=== PATIENT | female | born 1940 | race Caucasian/White ===

== ENCOUNTER 2019-09-25 16:34 | Emergency (ER) | payer OTHER ==
[2019-09-25] MEDS ORDERED: IPRATROPIUM BROM 0.5MG/2.5ML ONE (16:39)
[2019-09-25] MEDS ORDERED: ALBUTEROL 2.5 MG/3 ML NEB SOL ONE (16:39)
[2019-09-25 17:22] LABS: Absolute Lymphocytes (CBC) 2.4 K/uL (0.7-4.9); Basophils % 1.2 % (0-1.3); Hematocrit 40.1 % (36.0-45.0); Lymphocytes % 32.3 % (15.3-44.8); MPV 8.5 fL (7.6-11.3); RBC Red Blood Cell Count 4.14 M/uL (3.86-4.86)
[2019-09-25] MEDS ORDERED: HYDROCODONE/APAP 7.5/325 MG TAB ONE (17:30)
[2019-09-25 17:31] LABS: Protime INR 0.97
[2019-09-25] MEDS ORDERED: NA CHLORIDE 0.9% 500 ML ONE (17:31)
[2019-09-25 17:42] LABS: ALT/SGPT 22 U/L (12-78); AST/SGOT 18 U/L (15-37); Albumin 3.1 g/dL (3.4-5.0); Alkaline Phosphatase 117 U/L (45-117); BUN Blood Urea Nitrogen 23 mg/dL (7-18); Bicarbonate 33 mmol/L (21-32); Bilirubin Direct < 0.1 mg/dL (0-0.2); Bilirubin Total 0.2 mg/dL (0.2-1.0); Glucose Level 108 mg/dL (74-106); Magnesium 2.3 mg/dL (1.8-2.4); NT PRO-BNP 370 pg/mL (<450); Potassium 3.6 mmol/L (3.5-5.1); Sodium Level 144 mmol/L (136-145); Troponin (Emerg Dept Use Only) < 0.02 ng/mL (0.0-0.045)
[2019-09-25] MEDS ORDERED: predniSONE 20 MG TAB ONE (17:55)
--- NOTE | 2019-09-25 18:12 | ER ---
Nurse's Notes [facility] Name: Emilee Evans Age: 79 yrs Sex: Female : 1940 Arrival Date: 09/25/2019 Time: 16:32 Bed 3 Private MD: Diagnosis: Chronic obstructive pulmonary disease with (acute) exacerbation Presentation: 09/25 16:29 Presenting complaint: EMS states: chest pain that started after sitting outside of [facility] sv smoking a cigarette. Normal EKG. Transition of care: patient was not received from another setting of care. Onset of symptoms was September 25, 2019. Risk Assessment: Do you want to hurt yourself or someone else? Patient reports no desire to harm self or others. Care prior to arrival: Medication(s) given: ASA, 81 mg, x 4, IV initiated. in the right antecubital area, Glucose check: 110. 16:29 Method Of Arrival: EMS: [facility] sv 16:30 Initial Sepsis Screen: Does the patient meet any 2 criteria? RR > 20 per min. HR > 90 sv bpm. Yes Does the patient have a suspected source of infection? No. Patient's initial sepsis screen is negative. 16:33 Acuity: RITU 2 sv Triage Assessment: 16:30 General: Appears in no apparent distress. uncomfortable, well developed, Behavior is sv cooperative, appropriate for age. Pain: Complains of pain in back of neck. Neuro: Level of Consciousness is awake, alert, obeys commands, Oriented to person, place, time, situation, Moves all extremities. Cardiovascular: Rhythm is sinus tachycardia. Respiratory: Respiratory effort is even, unlabored, Respiratory pattern is symmetrical, tachypnea Breath sounds with wheezes bilaterally. Derm: Skin is normal. Historical: - Allergies: 17:06 No Known Allergies; sv - PMHx: 17:06 CVA; Hypothyroidism; COPD; sv - Immunization history:: Adult Immunizations up to date. - Social history:: Smoking status: Patient uses tobacco products. - Ebola Screening: : No symptoms or risks identified at this time. Screenin:29 Abuse screen: Denies threats or abuse. Denies injuries from another. Nutritional sv screening: No deficits noted. Tuberculosis screening: No symptoms or risk factors identified. Fall Risk None identified. Assessment: 17:29 Reassessment: Patient appears in no apparent distress at this time. Patient and/or sv family updated on plan of care and expected duration. Pain level reassessed. Patient is alert, oriented x 3, equal unlabored respirations, skin warm/dry/pink. 18:15 Reassessment: Patient appears in no apparent distress at this time. Patient and/or sv family updated on plan of care and expected duration. Pain level reassessed. Patient is alert, oriented x 3, equal unlabored respirations, skin warm/dry/pink. Pt requesting food, ok by Zahraa CORPORATE INTERN. Pt given sandwich, baked chips and apple juice. 18:40 Reassessment: Patient appears in no apparent distress at this time. Patient and/or sv family updated on plan of care and expected duration. Pain level reassessed. Patient is alert, oriented x 3, equal unlabored respirations, skin warm/dry/pink. Pt being changed of incontinence, pt stated "They haven't changed my diapers since this morning." Patient states symptoms have improved. 18:49 Reassessment: Report given to Monae at [facility]. sv 18:54 Reassessment: Pt reports "They haven't changed me since this morning and my rear is on jl7 fire." Pt's brief changed. pt cleaned and sitting in the wheelchair at the bedside awaiting transportation. 18:57 Reassessment: Patient appears in no apparent distress at this time. Patient and/or sv family updated on plan of care and expected duration. Pain level reassessed. Patient is alert, oriented x 3, equal unlabored respirations, skin warm/dry/pink. Report given to Monae at [facility], she will call back to see how to transport pt back. 19:28 Reassessment: Patient appears in no apparent distress at this time. No changes from ak1 previously documented assessment. Patient and/or family updated on plan of care and expected duration. Pain level reassessed. Patient is alert, oriented x 3, equal unlabored respirations, skin warm/dry/pink. Vital Signs: 16:30 BP 113 / 59; Pulse 108; Resp 26; Temp 97.5(O); Pulse Ox 100% ; sv 17:00 BP 101 / 53; Pulse 109; Resp 26; Pulse Ox 100% on Nebulizer Mask; sv 18:41 BP 110 / 58; Pulse 110; Resp 24; Pulse Ox 95% ; sv 18:52 BP 111 / 59; Pulse 107; Resp 24; Pulse Ox 95% ; sv ED Course: 16:29 Maintain EMS IV. Dressing intact. Good blood return noted. Site clean \\T\\ dry. Gauge \\T\\ sv site: 20G R AC. 16:30 Oxygen administration via nasal cannula \\T\\ 2L/min. jl7 16:30 Patient has correct armband on for positive identification. Placed in gown. Bed in low jl7 position. Call light in reach. Side rails up X2. patient monitor on. Pulse ox on. NIBP on. Warm blanket given. 16:32 Patient arrived in ED. jl7 16:33 Zahraa Thakkar [facility]-C [facility]. snw 16:33 Tim Damon MD is Attending Physician. snw 16:33 Tessa Sharma, RN is Primary Nurse. sv 16:33 Triage completed. sv 16:36 EKG done, by health information tech. reviewed by Zahraa BERNAL. sm3 17:10 Initial lab(s) drawn, by ED staff, sent to lab. sv 17:15 XRAY Chest (1 view) In Process Unspecified. EDMS 17:30 Awaiting lab results, Awaiting radiology results. sv 19:24 Primary Nurse role handed off by Tessa Sharma, AMY sv 19:28 Sierra Caballero, RN is Primary Nurse. ak1 19:30 IV discontinued, intact, bleeding controlled, No redness/swelling at site. Pressure ak1 dressing applied. Administered Medications: 16:43 Drug: Albuterol - atroVENT (3:1) (2.5 mg - 0.5 mg) 3 ml Route: Nebulizer; jl7 17:06 Follow up: Response: No adverse reaction sv 17:57 Drug: predniSONE 40 mg Route: PO; jl7 18:49 Follow up: Response: No adverse reaction sv Outcome: 18:10 Discharge ordered by . snw 19:30 Discharged to custodial. Report called to by Tessa da silva 19:30 Condition: improved 19:30 Discharge instructions given to patient, Instructed on discharge instructions, follow up and referral plans. medication usage, Demonstrated understanding of instructions, follow-up care, medications, Prescriptions given X 1. 19:30 Patient left the ED. ak1 Signatures: Dispatcher [employer] Tessa De La Paz, AMY RN sv Zahraa Thakkar, JAMMER OPERATOR-C JAMMER OPERATOR-Csnw Sierra Caballero RN RN ak1 Jaime Garcia RN RN jl7 Abigail Lopez 3 Corrections: (The following items were deleted from the chart) 17:30 16:30 BP 113 / 59; Pulse 108bpm; Resp 26bpm; Pulse Ox 100%; sv sv
--- NOTE | 2019-09-25 18:12 | EDPHYS ---
Physician Documentation [facility] Name: Emilee Evans Age: 79 yrs Sex: Female : 1940 Arrival Date: 09/25/2019 Time: 16:32 Bed 3 Private MD: ED Physician Tim Damon HPI: 09/25 16:33 This 79 yrs old Female presents to ER via Unassigned with complaints of Chest snw Pain. 16:33 The patient or guardian reports chest pain that is located primarily in the epigastric snw area, anterior chest wall. Onset: suddenly. The pain does not radiate. The chest pain is described as burning, a pressure. Duration: The patient or guardian reports a single episode, that is still ongoing. Modifying factors: The symptoms are alleviated by nothing. the symptoms are aggravated by emotionally stressful situations. Severity of pain: At its worst the pain was moderate. EMS care prior to arrival includes: aspirin, saline lock, supplemental oxygen. The patient has experienced similar episodes in the past, multiple times. Historical: - Allergies: 17:06 No Known Allergies; sv - PMHx: 17:06 CVA; Hypothyroidism; COPD; sv - Immunization history:: Adult Immunizations up to date. - Social history:: Smoking status: Patient uses tobacco products. - Ebola Screening: : No symptoms or risks identified at this time. ROS: 16:33 Constitutional: Negative for fever, chills, and weight loss, Eyes: Negative for injury, snw pain, redness, and discharge, ENT: Negative for injury, pain, and discharge, Neck: Negative for injury, pain, and swelling, Respiratory: Negative for shortness of breath, cough, wheezing, and pleuritic chest pain, Abdomen/GI: Negative for abdominal pain, nausea, vomiting, diarrhea, and constipation, Back: Negative for injury and pain, : Negative for injury, bleeding, discharge, and swelling, MS/Extremity: Negative for injury and deformity, Skin: Negative for injury, rash, and discoloration, Neuro: Negative for headache, weakness, numbness, tingling, and seizure, Psych: Negative for depression, anxiety, suicide ideation, homicidal ideation, and hallucinations, Allergy/Immunology: Negative for hives, rash, and allergies, Endocrine: Negative for neck swelling, polydipsia, polyuria, polyphagia, and marked weight changes. 16:33 Cardiovascular: Positive for chest pain, of the chest. Exam: 16:36 Constitutional: This is a well developed, well nourished patient who is awake, alert, snw and in no acute distress. Head/Face: Normocephalic, atraumatic. Eyes: Pupils equal round and reactive to light, extra-ocular motions intact. Lids and lashes normal. Conjunctiva and sclera are non-icteric and not injected. Cornea within normal limits. Periorbital areas with no swelling, redness, or edema. ENT: Nares patent. No nasal discharge, no septal abnormalities noted. Tympanic membranes are normal and external auditory canals are clear. Oropharynx with no redness, swelling, or masses, exudates, or evidence of obstruction, uvula midline. Mucous membranes moist. Neck: Trachea midline, no thyromegaly or masses palpated, and no cervical lymphadenopathy. Supple, full range of motion without nuchal rigidity, or vertebral point tenderness. No Meningismus. Chest/axilla: Normal chest wall appearance and motion. Nontender with no deformity. No lesions are appreciated. Cardiovascular: Regular rate and rhythm with a normal S1 and S2. No gallops, murmurs, or rubs. Normal PMI, no JVD. No pulse deficits. Abdomen/GI: Soft, non-tender, with normal bowel sounds. No distension or tympany. No guarding or rebound. No evidence of tenderness throughout. Back: No spinal tenderness. No costovertebral tenderness. Full range of motion. Skin: Warm, dry with normal turgor. Normal color with no rashes, no lesions, and no evidence of cellulitis. MS/ Extremity: Pulses equal, no cyanosis. Neurovascular intact. Full, normal range of motion. 16:36 Neuro: Orientation: is normal, Mentation: is normal, + evidence of CVA, residual left sided weakness. 16:36 Respiratory: mild respiratory distress is noted, Respirations: pursed lip breathing, snw shallow respirations, tachypnea, Breath sounds: bronchial sounds, that are moderate, decreased breath sounds, bronchitic cough. Vital Signs: 16:30 BP 113 / 59; Pulse 108; Resp 26; Temp 97.5(O); Pulse Ox 100% ; sv 17:00 BP 101 / 53; Pulse 109; Resp 26; Pulse Ox 100% on Nebulizer Mask; sv 18:41 BP 110 / 58; Pulse 110; Resp 24; Pulse Ox 95% ; sv 18:52 BP 111 / 59; Pulse 107; Resp 24; Pulse Ox 95% ; sv MDM: 16:39 Patient medically screened. snw 18:11 The patient was not given aspirin in the Emergency Department. Patient reports taking snw aspirin within the past 24 hours. Data reviewed: vital signs, nurses notes. Counseling: I had a detailed discussion with the patient and/or guardian regarding: the historical points, exam findings, and any diagnostic results supporting the discharge/admit diagnosis, lab results, radiology results, the need for outpatient follow up, to return to the emergency department if symptoms worsen or persist or if there are any questions or concerns that arise at home, smoking cessation. Response to treatment: the patient's symptoms have markedly improved after treatment. Special discussion: Based on the history and exam findings, there is no indication for further emergent testing or inpatient evaluation. I discussed with the patient/guardian the need to see the primary care provider for further evaluation of the symptoms. 09/25 16:45 Order name: Basic Metabolic Panel; Complete Time: 17:47 snw 09/25 16:45 Order name: CBC with Diff; Complete Time: 17:30 snw 09/25 16:45 Order name: LFT's; Complete Time: 17:47 snw 09/25 16:45 Order name: Magnesium; Complete Time: 17:47 snw 09/25 16:45 Order name: NT PRO-BNP; Complete Time: 17:47 snw 09/25 16:45 Order name: PT-INR; Complete Time: 17:47 snw 09/25 16:45 Order name: Troponin (emerg Dept Use Only); Complete Time: 17:47 snw 09/25 16:45 Order name: XRAY Chest (1 view); Complete Time: 18:29 snw 09/25 16:45 Order name: EKG; Complete Time: 16:46 snw 09/25 16:45 Order name: Cardiac monitoring; Complete Time: 16:49 snw 09/25 16:45 Order name: EKG - Nurse/Tech; Complete Time: 17:06 snw 09/25 16:45 Order name: O2 Per Protocol; Complete Time: 16:49 snw 09/25 16:45 Order name: O2 Sat Monitoring; Complete Time: 16:49 snw Administered Medications: 16:43 Drug: Albuterol - atroVENT (3:1) (2.5 mg - 0.5 mg) 3 ml Route: Nebulizer; jl7 17:06 Follow up: Response: No adverse reaction sv 17:57 Drug: predniSONE 40 mg Route: PO; jl7 18:49 Follow up: Response: No adverse reaction sv Disposition: 09/26 07:59 Co-signature as Attending Physician, Tim Damon MD I agree with the assessment and kdr plan of care. Disposition: 09/25/19 18:10 Discharged to Home. Impression: Chronic obstructive pulmonary disease with (acute) exacerbation. - Condition is Stable. - Discharge Instructions: How to Use an Inhaler, Chronic Obstructive Pulmonary Disease Exacerbation. - Prescriptions for Augmentin 875- 125 mg Oral Tablet - take 1 tablet by ORAL route every 12 hours for 10 days; 20 tablet. Albuterol Sulfate 90 mcg/actuation - inhale 1-2 puff by INHALATION route every 4-6 hours; 1 Inhaler. - Medication Reconciliation Form, Thank You Letter, Antibiotic Education, Prescription Opioid Use form. - Follow up: Emergency Department; When: As needed; Reason: Worsening of condition. Follow up: Private Physician; When: 1 - 2 days; Reason: Recheck today's complaints, Continuance of care, Re-evaluation by your physician. Signatures: Dispatcher [employer] Tessa De La Paz RN RN sv Rittger, Kevin, MD MD kdr Therrien, Shelly, SALVAGE WINDER-C SALVAGE WINDER-Csnw Sierra Caballero RN RN ak1 Jaime Garcia RN RN jl7 Corrections: (The following items were deleted from the chart) 09/25 19:30 18:10 09/25/2019 18:10 Discharged to Home. Impression: Chronic obstructive pulmonary ak1 disease with (acute) exacerbation. Condition is Stable. Forms are Medication Reconciliation Form, Thank You Letter, Antibiotic Education, Prescription Opioid Use. Follow up: Emergency Department; When: As needed; Reason: Worsening of condition. Follow up: Private Physician; When: 1 - 2 days; Reason: Recheck today's complaints, Continuance of care, Re-evaluation by your physician. snw
--- NOTE | 2019-09-25 18:24 | RAD REPORT ---
EXAM DESCRIPTION: Shaunna Single View09/25/2019 5:15 pm CLINICAL HISTORY: Chest pain COMPARISON: November 2018 FINDINGS: Patient's previously described pulmonary nodules are not clearly seen on this exam. The lungs appear clear of acute infiltrate. The heart is normal size IMPRESSION: No acute abnormalities displayed
--- NOTE | 2019-09-25 19:13 | EKG ---
Test Date: 2019-09-25 Test Time: 16:26:49 Field Service Poultry Technician: JORGE MEASUREMENT RESULTS: Intervals: Rate: 105 DC: 174 QRSD: 80 QT: 338 QTc: 446 [place]: P: 79 DC: 174 QRS: 73 T: 73 INTERPRETIVE STATEMENTS: Sinus tachycardia Right atrial enlargement Borderline ECG Compared to ECG 07/30/2016 19:56:29 Atrial abnormality now present Sinus rhythm no longer present T-wave abnormality no longer present Electronically Signed On 09-25-19 19:12:51 OVAL OR CIRCULAR GLASS CUTTER by Woody Rios
[2019-09-25 19:37] VITALS: O2SAT 95
[2019-09-25 19:38] VITALS: BP 111/59
== END 2019-09-25 19:30 | disposition home or self-care (01) ==
LOC: ER 16:34
DX: J44.1 Chronic obstructive pulmonary disease with (acute) exacerbation (principal); Z72.0 Tobacco use
CPT/HCPCS: 93005; 85025; 80048; 36415; 83735; 85610; 80076; 84484; 83880; 71045; 94640; 99285; J7040; J7512

== ENCOUNTER 2020-09-26 13:19 | Observation (INO) | payer OTHER ==
[2020-09-26 14:04] LABS: Absolute Lymphocytes (CBC) 1.6 K/uL (0.7-4.9); Basophils % 0.8 % (0-1.3); Hematocrit 41.2 % (36.0-45.0); Lymphocytes % 20.2 % (15.3-44.8); MPV 9.1 fL (7.6-11.3)
[2020-09-26 14:06] LABS: Protime INR 0.95
[2020-09-26] MEDS ORDERED: ASPIRIN 81 MG CHEWABLE TABLET ONE (14:28)
[2020-09-26] MEDS ORDERED: NA CHLORIDE 0.9% 1,000 ML ONE (14:28)
[2020-09-26 14:37] LABS: ALT/SGPT 20 U/L (12-78); AST/SGOT 13 U/L (15-37); Albumin 3.2 g/dL (3.4-5.0); Alkaline Phosphatase 90 U/L (45-117); BUN Blood Urea Nitrogen 17 mg/dL (7-18); Bicarbonate 30 mmol/L (21-32); Bilirubin Direct < 0.1 mg/dL (0-0.2); Bilirubin Total 0.3 mg/dL (0.2-1.0); Glucose Level 85 mg/dL (74-106); Magnesium 2.2 mg/dL (1.8-2.4); NT PRO-BNP 935 pg/mL (<450); Protein, Total 7.3 g/dL (6.4-8.2); Sodium Level 143 mmol/L (136-145); Troponin (Emerg Dept Use Only) < 0.02 ng/mL (0.0-0.045)
--- NOTE | 2020-09-26 14:54 | ER ---
Nurse's Notes [facility] Name: Emilee Evans Age: 80 yrs Sex: Female : 1940 Arrival Date: 09/26/2020 Time: 13:22 Bed 2 Private MD: Diagnosis: Other chest pain;Dyspnea;Chronic obstructive pulmonary disease, unspecified Presentation: 09/26 13:26 Chief complaint: EMS states: Chest pressure with she breathed in once an hour ago, jl7 denies any pain/discomfort at this time. Coronavirus screen: Client denies travel out of the [place] in the last 14 days. At this time, the client does not indicate any symptoms associated with coronavirus-19. Ebola Screen: No symptoms or risks identified at this time. Initial Sepsis Screen: Does the patient meet any 2 criteria? No. Patient's initial sepsis screen is negative. Does the patient have a suspected source of infection? No. Patient's initial sepsis screen is negative. Risk Assessment: Do you want to hurt yourself or someone else?. Onset of symptoms was September 26, 2020 at 12:30. Care prior to arrival: None. Transition of care: patient was received from another setting of care (long-term care facility), [facility]. 13:26 Method Of Arrival: EMS: [facility] jl7 13:26 Acuity: RITU 2 jl7 Triage Assessment: 13:38 General: Appears in no apparent distress. uncomfortable, Behavior is calm, cooperative, jl7 appropriate for age. Pain: Denies pain. Neuro: Level of Consciousness is awake, alert, obeys commands, Oriented to person, place, time, situation. Cardiovascular: Denies chest pain, Patient's skin is warm and dry. Respiratory: Airway is patent Respiratory effort is even, unlabored, Respiratory pattern is regular, symmetrical, Denies shortness of breath. GI: No signs and/or symptoms were reported involving the gastrointestinal system. : No signs and/or symptoms were reported regarding the genitourinary system. Derm: Skin is pink, warm \T\ dry. Historical: - Allergies: 13:38 No Known Allergies; jl7 - Home Meds: 13:38 levothyroxine 125 mcg tab 1 tab once daily [Active]; atorvastatin 10 mg oral tab 1 tab jl7 once daily [Active]; omeprazole 20 mg Oral cpDR 1 cap once daily [Active]; Wellbutrin SR 200 mg Oral TbER 1 tab [Active]; - PMHx: 13:38 COPD; CVA; left-sided deficits; Hypothyroidism; GERD; Chronic pain; Hyperlipidemia; jl7 Depression; - Immunization history:: Adult Immunizations up to date. - Social history:: Smoking status: Patient denies any tobacco usage or history of. - Family history:: not pertinent. Screenin:40 Abuse screen: Denies threats or abuse. Denies injuries from another. Nutritional jl7 screening: No deficits noted. Tuberculosis screening: No symptoms or risk factors identified. Fall Risk No fall in past 12 months (0 pts). Secondary diagnosis (15 points) CVA, IV access (20 points). Ambulatory Aid- Crutches/Cane/Walker (15 pts). Gait- Weak (10 pts.). Mental Status- Oriented to own ability (0 pts). Total Novoa Fall Scale indicates High Risk Score (45 or more points). Fall prevention measures have been instituted. Side Rails Up X 2 Placed Close to Nursing Station Frequent Obs/Assessments Occuring Family Present and informed to notify staff if the need to leave the bedside As available patient and family educated on Fall Prevention Program and Strategies. Assessment: 13:45 General: See triage assessment. jl7 15:00 Reassessment: Patient appears in no apparent distress at this time. No changes from jl7 previously documented assessment. Patient and/or family updated on plan of care and expected duration. Pain level reassessed. Patient is alert, oriented x 3, equal unlabored respirations, skin warm/dry/pink. 15:40 Reassessment: Pt returned from CT. jl7 16:45 Reassessment: Cleaned pt of incontinence of urine and feces, new brief placed. jl7 16:46 Reassessment: Report will be called once COVID-19 swab is resulted. jl7 17:45 Reassessment: Patient appears in no apparent distress at this time. No changes from jl7 previously documented assessment. Patient and/or family updated on plan of care and expected duration. Pain level reassessed. Patient is alert, oriented x 3, equal unlabored respirations, skin warm/dry/pink. Vital Signs: 13:26 BP 122 / 66; Pulse 89; Resp 17; Pulse Ox 100% ; Pain 0/10; jl7 14:00 BP 113 / 67; Pulse 86; Resp 17; Pulse Ox 99% ; jl7 14:00 Temp 98.2; jl7 15:23 Weight 45.36 kg; jl7 15:45 BP 150 / 82; Pulse 100; Resp 21; Pulse Ox 100% ; Pain 0/10; jl7 16:44 BP 142 / 82; Pulse 101; Resp 19; Pulse Ox 100% ; jl7 18:00 BP 102 / 55; Pulse 102; Resp 17; Pulse Ox 96% ; jl7 ED Course: 13:22 Patient arrived in ED. jl7 13:28 Triage completed. jl7 13:32 John Jung MD is Attending Physician. [facility] 13:38 Arm band placed on right wrist. jl7 13:45 Patient has correct armband on for positive identification. Placed in gown. Bed in low jl7 position. Call light in reach. Side rails up X2. court recording monitor on. Pulse ox on. NIBP on. 13:45 Warm blanket given. jl7 14:00 Initial lab(s) drawn, by pa, sent to lab. EKG done, by ED staff, reviewed by John Jung MD. Inserted saline lock: 20 gauge in right forearm, using aseptic technique. Blood collected. 14:07 XRAY Chest (1 view) In Process Unspecified. EDMS 14:13 Jaime Garcia, AMY is Primary Nurse. jl7 14:52 Danny Mitchell MD is Hospitalizing Provider. [facility] 15:16 CT Chest For PE Angio In Process Unspecified. EDMS 16:03 Flu and/or RSV swab sent to lab. COVID-19 swab sent to lab. jl7 16:35 Urine collected: straight cath specimen, clear. Straight cath inserted, using sterile [facility] technique, 14 Fr. Specimen obtained. Returned clear yellow urine. Patient tolerated well. 16:44 No provider procedures requiring assistance completed. Patient admitted, IV remains in jl7 place. intact, No redness/swelling at site. Administered Medications: 14:30 Drug: Aspirin Chewable Tablet 162 mg Route: PO; jl7 16:13 Follow up: Response: No adverse reaction jl7 15:00 Drug: NS 0.9% 1000 ml Route: IV; Rate: 125 ml/hr; Site: right forearm; jl7 16:13 Follow up: IV Status: Infusion continued upon admission jl7 15:50 Drug: Lovenox 1 mg/kg Route: Sub-Q; Site: abdomen; jl7 16:13 Follow up: Response: No adverse reaction jl7 15:59 Drug: Xopenex 1.25 mg Route: Inhalation; jl7 15:59 Drug: AtroVENT Aerosol 0.5 mg Route: Inhalation; jl7 Outcome: 14:54 Decision to Hospitalize by Provider. michael 18:00 Admitted to Tele accompanied by tech, via stretcher, room 228, with chart, Report jl7 called to AMY Ashby 18:00 Condition: stable 18:00 Discharge instructions given to patient, Instructed on the need for admit, Demonstrated understanding of instructions. 18:26 Patient left the ED. jl7 19:02 Patient left the ED. jl7 Signatures: Dispatcher [employer] John Cristobal MD MD cha Leal, Jahala RN RN jl7
--- NOTE | 2020-09-26 14:54 | EDPHYS ---
Physician Documentation [facility] Name: Emilee Evans Age: 80 yrs Sex: Female : 1940 Arrival Date: 09/26/2020 Time: 13:22 Bed 2 Private MD: ED Physician John Jung HPI: 09/26 14:41 This 80 yrs old Female presents to ER via EMS with complaints of Chest Pain. [facility] 14:41 The patient or guardian reports chest pain that is located primarily in the anterior [facility] chest wall. Onset: just prior to arrival, today. The pain does not radiate. Associated signs and symptoms: Pertinent positives: shortness of breath. The chest pain is described as a pressure, sharp. Duration: The patient or guardian reports multiple episodes, that are intermittent. Modifying factors: The symptoms are alleviated by remaining still, the symptoms are aggravated by deep breath. Severity of pain: At its worst the pain was mild in the emergency department the pain is unchanged. The patient has not experienced similar symptoms in the past. Historical: - Allergies: 13:38 No Known Allergies; jl7 - Home Meds: 13:38 levothyroxine 125 mcg tab 1 tab once daily [Active]; atorvastatin 10 mg oral tab 1 tab jl7 once daily [Active]; omeprazole 20 mg Oral cpDR 1 cap once daily [Active]; Wellbutrin SR 200 mg Oral TbER 1 tab [Active]; - PMHx: 13:38 COPD; CVA; left-sided deficits; Hypothyroidism; GERD; Chronic pain; Hyperlipidemia; jl7 Depression; - Immunization history:: Adult Immunizations up to date. - Social history:: Smoking status: Patient denies any tobacco usage or history of. - Family history:: not pertinent. ROS: 14:41 Constitutional: Negative for fever, chills, and weight loss, Eyes: Negative for injury, michael pain, redness, and discharge, ENT: Negative for injury, pain, and discharge, Neck: Negative for injury, pain, and swelling, Respiratory: Negative for shortness of breath, cough, wheezing, and pleuritic chest pain, Abdomen/GI: Negative for abdominal pain, nausea, vomiting, diarrhea, and constipation, Back: Negative for injury and pain, : Negative for injury, bleeding, discharge, and swelling, MS/Extremity: Negative for injury and deformity, Skin: Negative for injury, rash, and discoloration, Neuro: Negative for headache, weakness, numbness, tingling, and seizure, Psych: Negative for depression, anxiety, suicide ideation, homicidal ideation, and hallucinations, Allergy/Immunology: Negative for hives, rash, and allergies, Endocrine: Negative for neck swelling, polydipsia, polyuria, polyphagia, and marked weight changes, Hematologic/Lymphatic: Negative for swollen nodes, abnormal bleeding, and unusual bruising. 14:41 Cardiovascular: Positive for chest pain, of the chest. Exam: 14:41 Constitutional: This is a well developed, well nourished patient who is awake, alert, michael and in no acute distress. Head/Face: Normocephalic, atraumatic. Eyes: Pupils equal round and reactive to light, extra-ocular motions intact. Lids and lashes normal. Conjunctiva and sclera are non-icteric and not injected. Cornea within normal limits. Periorbital areas with no swelling, redness, or edema. ENT: Nares patent. No nasal discharge, no septal abnormalities noted. Tympanic membranes are normal and external auditory canals are clear. Oropharynx with no redness, swelling, or masses, exudates, or evidence of obstruction, uvula midline. Mucous membranes moist. Neck: Trachea midline, no thyromegaly or masses palpated, and no cervical lymphadenopathy. Supple, full range of motion without nuchal rigidity, or vertebral point tenderness. No Meningismus. Chest/axilla: Normal chest wall appearance and motion. Nontender with no deformity. No lesions are appreciated. Cardiovascular: Regular rate and rhythm with a normal S1 and S2. No gallops, murmurs, or rubs. Normal PMI, no JVD. No pulse deficits. Respiratory: Lungs have equal breath sounds bilaterally, clear to auscultation and percussion. No rales, rhonchi or wheezes noted. No increased work of breathing, no retractions or nasal flaring. Abdomen/GI: Soft, non-tender, with normal bowel sounds. No distension or tympany. No guarding or rebound. No evidence of tenderness throughout. Back: No spinal tenderness. No costovertebral tenderness. Full range of motion. Female : Normal external genitalia. Skin: Warm, dry with normal turgor. Normal color with no rashes, no lesions, and no evidence of cellulitis. MS/ Extremity: Pulses equal, no cyanosis. Neurovascular intact. Full, normal range of motion. Neuro: Awake and alert, GCS 15, oriented to person, place, time, and situation. Cranial nerves II-XII grossly intact. Motor strength 5/5 in all extremities. Sensory grossly intact. Cerebellar exam normal. Normal gait. Psych: Awake, alert, with orientation to person, place and time. Behavior, mood, and affect are within normal limits. 14:41 Musculoskeletal/extremity: DVT Exam: No signs of deep vein thrombosis. no pain, no swelling, no tenderness, negative Homans' sign noted on exam, no appreciated bluish discoloration, no erythema, no increased warmth. Vital Signs: 13:26 BP 122 / 66; Pulse 89; Resp 17; Pulse Ox 100% ; Pain 0/10; jl7 14:00 BP 113 / 67; Pulse 86; Resp 17; Pulse Ox 99% ; jl7 14:00 Temp 98.2; jl7 15:23 Weight 45.36 kg; jl7 15:45 BP 150 / 82; Pulse 100; Resp 21; Pulse Ox 100% ; Pain 0/10; jl7 16:44 BP 142 / 82; Pulse 101; Resp 19; Pulse Ox 100% ; jl7 18:00 BP 102 / 55; Pulse 102; Resp 17; Pulse Ox 96% ; jl7 MDM: 13:33 Patient medically screened. michael 14:43 Differential diagnosis: abnormal EKG, acute myocardial infarction, chest wall pain, michael costochondritis, pneumonia, pulmonary embolus, stable angina, unstable angina. HEART Score: History: Slightly Suspicious (0), ECG: Non specific repolarization disturbance / LBTB / PM (1), Age: > or = 65 years (2), Risk Factors: > or = 3 Risk factors for atherosclerotic disease (2), [Hypercholesterolemia] [Hypertension] [+ Family HX] Troponin: < or = 1 x Normal Limit (0). The patient was given aspirin in the Emergency Department. The patient's deep vein thrombosis risk score was calculated as follows: Total Score: 0. This patient was found to be at low risk for a deep vein thrombosis by using the Well's assessment criteria. The patient's pulmonary embolism risk score was calculated as follows: Total Score: 0-2 points. This patient was found to be at low risk for a pulmonary embolism by using the Well's assessment criteria. BK Risk Score: 1 - patient's age is greater or equal to 65 years, 1 - Three or more CAD risk factors, 1- Known CAD, TOTAL SCORE = 3. Data reviewed: vital signs, nurses notes, lab test result(s), EKG, radiologic studies, CT scan, plain films. Data interpreted: compliance monitor: rate is 89 beats/min, rhythm is regular, Pulse oximetry: on room air is 100 %. Test interpretation: by ED physician or midlevel provider: ECG, plain radiologic studies. Counseling: I had a detailed discussion with the patient and/or guardian regarding: the historical points, exam findings, and any diagnostic results supporting the discharge/admit diagnosis, lab results, radiology results, the need for further work-up and treatment in the hospital. 09/26 13:37 Order name: Basic Metabolic Panel [facility] 09/26 13:37 Order name: CBC with Diff [facility] 09/26 13:37 Order name: LFT's [facility] 09/26 13:37 Order name: Magnesium; Complete Time: 14:40 [facility] 09/26 13:37 Order name: NT PRO-BNP; Complete Time: 14:40 [facility] 09/26 13:37 Order name: PT-INR; Complete Time: 14:25 [facility] 09/26 13:37 Order name: Troponin (emerg Dept Use Only); Complete Time: 14:40 [facility] 09/26 13:37 Order name: D-Dimer; Complete Time: 14:25 [facility] 09/26 13:38 Order name: Basic Metabolic Panel; Complete Time: 14:40 [facility] 09/26 13:38 Order name: CBC with Automated Diff; Complete Time: 14:25 [facility] 09/26 13:38 Order name: Liver (Hepatic) Function; Complete Time: 14:40 [facility] 09/26 14:51 Order name: COVID-19 [facility] 09/26 14:51 Order name: Flu [facility] 09/26 15:53 Order name: CBC with Automated Diff [facility] 09/26 15:53 Order name: CBC with Automated Diff [facility] 09/26 15:53 Order name: Comprehensive Metabolic Panel [facility] 09/26 15:53 Order name: Comprehensive Metabolic Panel [facility] 09/26 15:53 Order name: Lactate [facility] 09/26 15:53 Order name: Lactate [facility] 09/26 15:53 Order name: Lipid Profile [facility] 09/26 15:53 Order name: Lipid Profile [facility] 09/26 15:53 Order name: Magnesium [facility] 09/26 15:53 Order name: Magnesium [facility] 09/26 15:53 Order name: NT PRO-BNP [facility] 09/26 15:53 Order name: NT PRO-BNP [facility] 09/26 15:53 Order name: Phosphorus [facility] 09/26 15:53 Order name: Phosphorus [facility] 09/26 15:53 Order name: Procalcitonin [facility] 09/26 15:53 Order name: Procalcitonin [facility] 09/26 16:48 Order name: Urine Dipstick--Ancillary (enter results) 09/26 13:37 Order name: XRAY Chest (1 view) [facility] 09/26 13:37 Order name: EKG; Complete Time: 13:38 [facility] 09/26 13:37 Order name: Cardiac monitoring; Complete Time: 13:40 [facility] 09/26 13:37 Order name: EKG - Nurse/Tech; Complete Time: 13:40 [facility] 09/26 13:37 Order name: IV Saline Lock; Complete Time: 13:52 [facility] 09/26 13:37 Order name: Labs collected and sent; Complete Time: 13:52 [facility] 09/26 13:37 Order name: O2 Per Protocol; Complete Time: 13:40 [facility] 09/26 13:37 Order name: O2 Sat Monitoring; Complete Time: 13:40 [facility] 09/26 13:37 Order name: Urine Dipstick-Ancillary (obtain specimen); Complete Time: 16:48 [facility] 09/26 14:41 Order name: CT Chest For PE Angio [facility] 09/26 15:53 Order name: CONS Physician Consult [facility] 09/26 15:53 Order name: Heart Healthy [facility] 09/26 17:12 Order name: Urine Dipstick-Ancillary [facility] 09/26 18:10 Order name: SARS-COV-2 RT PCR [facility] Administered Medications: 14:30 Drug: Aspirin Chewable Tablet 162 mg Route: PO; jl7 16:13 Follow up: Response: No adverse reaction jl7 15:00 Drug: NS 0.9% 1000 ml Route: IV; Rate: 125 ml/hr; Site: right forearm; jl7 16:13 Follow up: IV Status: Infusion continued upon admission jl7 15:50 Drug: Lovenox 1 mg/kg Route: Sub-Q; Site: abdomen; jl7 16:13 Follow up: Response: No adverse reaction jl7 15:59 Drug: Xopenex 1.25 mg Route: Inhalation; 7 15:59 Drug: AtroVENT Aerosol 0.5 mg Route: Inhalation; jl7 Disposition: 09/26/20 14:54 Hospitalization ordered by Danny Mitchell for Observation. Preliminary diagnosis are Other chest pain, Dyspnea, Chronic obstructive pulmonary disease, unspecified. - Bed requested for Telemetry/MedSurg (Inpatient). - Status is Observation. jl7 - Condition is Fair. - Problem is new. - Symptoms have improved. Signatures: Dispatcher [employer] EDBrook Wilkins RN RN dw Anderson, Corey, MD MD cha Leal, Jahala, RN RN jl7 Corrections: (The following items were deleted from the chart) 16:19 14:54 Hospitalization Ordered by Danny Mitchell MD for Observation. Preliminary dw diagnosis is Other chest pain; Dyspnea; Chronic obstructive pulmonary disease, unspecified. Bed requested for Telemetry/MedSurg (Inpatient). Status is Observation. Condition is Fair. Problem is new. Symptoms have improved. [facility] 18:26 16:19 09/26/2020 14:54 Hospitalization Ordered by Danny Mitchell MD for Observation. [email or web address] Preliminary diagnosis is Other chest pain; Dyspnea; Chronic obstructive pulmonary disease, unspecified. Bed requested for Telemetry/MedSurg (Inpatient). Status is Observation. Condition is Fair. Problem is new. Symptoms have improved. 19:02 18:26 09/26/2020 14:54 Hospitalization Ordered by Danny Mitchell MD for Observation. [email or web address] Preliminary diagnosis is Other chest pain; Dyspnea; Chronic obstructive pulmonary disease, unspecified. Bed requested for Telemetry/MedSurg (Inpatient). Status is Observation. Condition is Fair. Problem is new. Symptoms have improved. jl7
--- NOTE | 2020-09-26 15:40 | RAD REPORT ---
EXAM DESCRIPTION: Shaunna Single View09/26/2020 2:07 pm CLINICAL HISTORY: Chest pain COMPARISON: 2019 FINDINGS: Lungs are moderately to markedly hyperaerated consistent with COPD 23 millimeter nodule overlies left hilum. The right lung appears clear of acute infiltrate. . The heart is normal size
--- NOTE | 2020-09-26 15:41 | RAD REPORT ---
EXAM DESCRIPTION: CT - Chest For Pe Angio - 09/26/2020 3:16 pm CLINICAL HISTORY: Chest pain COMPARISON: 2019 TECHNIQUE: Dynamically enhanced axial 3 mm thick images of the chest were obtained during administra tion of <100> mL Isovue 370 IV contrast. Coronal and oblique reconstruction images were generated and reviewed. Exam utilizes a protocol for optimal evaluation of pulmonary arterial tree. Maximum intensity projections 3D imaging was utilized All CT scans are performed using dose optimization technique as appropriate and may include automated exposure control or mA/KV adjustment according to patient size. FINDINGS: A pulmonary embolus is not seen. A thoracic aortic aneurysm is not noted. A pleural effusion is not seen. A pericardial effusion is not seen. 2.5 x 1.8 centimeter left lower lobe nodule. On the prior exam it measured approximately 2.1 x 1 cent imeter Vague sub centimeter opacity left lower lobe unchanged Moderate centrilobular emphysema IMPRESSION: Negative for a pulmonary embolism. Enlargement of a 2.5 x 1.8 centimeter left lower lobe nodule probably neoplasm
[2020-09-26] MEDS ORDERED: ONDANSETRON 4 MG/2 ML VIAL IV PRN (15:49)
[2020-09-26] MEDS ORDERED: IPRATROPIUM BROM 0.5MG/2.5ML ONE (15:52)
[2020-09-26] MEDS ORDERED: ENOXAPARIN 60 MG/0.6 ML SQ ONE (15:53)
[2020-09-26] MEDS ORDERED: LEVALBUTEROL 1.25 MG/3 ML NEB ONE (15:53)
[2020-09-26] MEDS: NA CHLORIDE 0.9% 1,000 ML IV SCH (16:00)
[2020-09-26 17:12] LABS: Urine Blood 1+ (NEG); Urine Glucose NEGATIVE (NEG); Urine Protein NEGATIVE (NEG); Urine Specific Gravity 1.015 (1.005-1.030)
[2020-09-26] MEDS: ALBUTEROL 2.5 MG/3 ML NEB SOL NEB SCH (19:30)
[2020-09-26] MEDS: IPRATROPIUM BROM 0.5MG/2.5ML NEB SCH (19:30)
[2020-09-26] MEDS ORDERED: CEFTRIAXONE 1 GM/NS 50 ML 1 GM/50 ML BAG IV SCH (21:00)
[2020-09-26] MEDS: METHYLPREDNISOLONE 40 MG INJ IV SCH (21:41)
[2020-09-26] MEDS: CEFTRIAXONE/SWI 1gm 1 GM/10 ML SYR IV SCH (21:41)
[2020-09-27 01:06] VITALS: BMI 14.8
[2020-09-27] MEDS: IPRATROPIUM BROM 0.5MG/2.5ML NEB SCH ×2 (01:15→09:01)
[2020-09-27] MEDS: ALBUTEROL 2.5 MG/3 ML NEB SOL NEB SCH ×2 (01:15→09:01)
[2020-09-27] MEDS: ACETAMINOPHEN 500 MG TAB PO PRN ×2 (01:48→09:34)
[2020-09-27] MEDS: METHYLPREDNISOLONE 40 MG INJ IV SCH ×2 (02:56→09:24)
[2020-09-27] MEDS: NA CHLORIDE 0.9% 1,000 ML IV SCH (05:08)
[2020-09-27 06:29] LABS: Absolute Lymphocytes (CBC) 0.5 K/uL (0.7-4.9); Basophils % 0.6 % (0-1.3); Hematocrit 36.3 % (36.0-45.0); Lymphocytes % 14.5 % (15.3-44.8); MPV 9.3 fL (7.6-11.3); RBC Red Blood Cell Count 3.82 M/uL (3.86-4.86)
[2020-09-27 06:44] LABS: Albumin 2.9 g/dL (3.4-5.0); Bilirubin Total 0.4 mg/dL (0.2-1.0); Magnesium 1.9 mg/dL (1.8-2.4); Phosphorus 2.9 mg/dL (2.5-4.9); Protein, Total 6.5 g/dL (6.4-8.2)
[2020-09-27 08:54] VITALS: BP 118/59; TEMP 97.2
[2020-09-27] MEDS ORDERED: ENOXAPARIN 30 MG/0.3 ML SQ SCH (09:00)
[2020-09-27] MEDS ORDERED: ENOXAPARIN 40 MG/0.4 ML SQ SCH (09:00)
[2020-09-27] MEDS ORDERED: SPIRONOLACTONE 25 MG TABLET PO SCH (09:00)
[2020-09-27] MEDS ORDERED: AZITHROMYCIN IV 500 MG in NA CHLORIDE 0.9% 250 ML IVPB SCH (09:00)
[2020-09-27] MEDS: CEFTRIAXONE/SWI 1gm 1 GM/10 ML SYR IV SCH (09:25)
[2020-09-27 09:35] VITALS: O2SAT 93
[2020-09-27] MEDS ORDERED: MORPHINE 2 MG/ML SYR IV PRN (10:23)
--- NOTE | 2020-09-27 10:26 | P.HP ---
Certification for Inpatient Patient admitted to: Observation With expected LOS: <2 Midnights Patient will require the following post-hospital care: None Practitioner: I am a practitioner with admitting privileges, knowledge of patient current condition, hospital course, and medical plan of care. Services: Services provided to patient in accordance with Admission requirements found in Title 42 Section 412.3 of the Code of Federal Regulations Patient History Date of Service: 09/26/20 Reason for admission: Chest pain and history of COPD History of Present Illness: Patient is a 80-year-old female came to the hospital from the [facility] after she was having some chest pressure. Pain was mainly in the sternal region and it did not radiate. Patient is a poor historian and most of the information was obtained from the chart and the nursing facility. Patient also has a history of COPD. Patient's CT scan did not reveal any significant infiltrates. She did have a lung mass that was noted which was felt to be neoplasm. Currently her chest pain is improved. Her troponins were negative and EKG does not have any acute findings. At this time she will be admitted to the hospital for observation to be ruled out for acute coronary syndrome. She does have a lung mass but with her age history of vascular dementia dementia(She has a history of a stroke that left her with left-sided weakness) was I do not think she is a great surgical pt, but we will get pulmonary consult and proceed from there. She will be admitted for observation and anticipate discharge in the morning. Allergies No Known Allergies Allergy (Verified 07/30/16 22:23) Home Medications: Acetaminophen [Tylenol -Tablet] 650 mg PO Q6HP PRN 09/26/20 Aspirin [Aspirin EC 81 MG] 81 mg PO DAILY 09/26/20 Atorvastatin Calcium [Lipitor] 10 mg PO BEDTIME 09/26/20 Calcium Carbonate [Tums Regular] 500 mg PO BID 09/26/20 Docusate Sodium 100 mg PO DAILY 09/26/20 Ergocalciferol (Vitamin D2) [Vitamin D2] 50,000 unit PO SEECOM 09/26/20 Lactobacillus Acidophilus [Probiotic Acidophilus] 1.5 mg PO DAILY 09/26/20 Lactulose 10 gm PO DAILY 09/26/20 Levothyroxine [Synthroid] 125 mcg PO [id number] 09/26/20 Melatonin 5 mg PO BEDTIME 09/26/20 Menthol [Biofreeze] 1 appl TP BID 09/26/20 Omeprazole 20 mg PO DAILY 09/26/20 Tramadol HCl [Ultram] 50 mg PO Q12H 09/26/20 Tramadol HCl [Ultram] 50 mg PO Q6HP PRN 09/26/20 buPROPion HCl [Wellbutrin Sr] 200 mg PO DAILY 09/26/20 - Past Medical/Surgical History Diabetic: No -: History of CVA, 1997, residual left-sided upper/lower extremity weakness -: Hypothyroidism -: Hysterectomy Psychosocial/ Personal History: She lives at [facility] - Social History Smoking Status: Unknown if ever smoked Alcohol use: No CD- Drugs: No Caffeine use: Yes Place of Residence: [facility] Review of Systems 10-point ROS is otherwise unremarkable Physical Examination - Vital Signs Temperature: 97.2 F Blood Pressure: 118/59 Pulse: 86 Respirations: 18 Pulse Ox (%): 98 - Physical Exam General: Alert, In no apparent distress, Oriented x2, Demented HEENT: Atraumatic, Normocephalic Neck: Supple, 2+ carotid pulse no bruit, JVD not distended Respiratory: Expiratory wheezes Cardiovascular: Regular rate/rhythm, Normal S1 S2, Systolic murmur Gastrointestinal: Normal bowel sounds, Soft and benign, Non-distended Musculoskeletal: No clubbing, No swelling Integumentary: No rashes Neurological: Normal speech, Cranial nerves 3-12 intact, Abnormal gait, Abnormal strength, Abnormal tone - Studies Laboratory Data (last 24 hrs) 09/26/20 13:50: PT 11.2, INR 0.95 09/26/20 13:50: WBC 8.2, Hgb 13.7, Hct 41.2, Plt Count 204 09/26/20 13:50: Sodium 143, Potassium 4.0, BUN 17, Creatinine 0.72, Glucose 85, Magnesium 2.2, Total Bilirubin 0.3, AST 13 L, ALT 20, Alkaline Phosphatase 90 Microbiology Data (last 24 hrs): 09/26/20 15:48 Nasopharnyx Influenza Type A Antigen Screen - Final 09/26/20 15:48 Nasopharnyx Influenza Type B Antigen Screen - Final Assessment & Plan - Problems (Diagnosis) (1) Chest pain, rule out acute myocardial infarction Current Visit: Yes Status: Acute (2) COPD (chronic obstructive pulmonary disease) Current Visit: Yes Status: Acute (3) Lung mass Current Visit: Yes Status: Acute (4) History of cerebrovascular accident with residual effects Current Visit: No Status: Chronic - Plan 1. Serial troponins and EKG 2. Pulmonary consultation for lung mass 3. Outpatient follow with Cardiology as needed 4. Anti-platelet therapy, anti coagulation, beta-bre, statin, and O2 as needed 5. IV morphine for pain 6. Nitro p.r.n. 7. Patient observation stay anticipate discharge home in the morning Discharge Plan: [facility] Plan to discharge in: 24 Hours - Advance Directives Does patient have a Living Will: Yes Does patient have a Durable POA for Healthcare: Yes - Code Status/Comfort Care Code Status Assessed: Yes Code Status: Full Code Critical Care: No Time Spent Managing PTS Care (In Minutes): 45
[2020-09-27] MEDS ORDERED: METHYLPRED NA SUC 1,000 MG in NA CHLORIDE 0.9% 100 ML IV ONE (12:00)
--- NOTE | 2020-09-27 12:14 | P.DS ---
Discharge Date: 09/27/20 Disposition: TRANSFER TO SNF - REHAB Discharge Condition: GOOD Reason for Admission: Chest pain and history of COPD Consultations: Pulmonary - Problems (1) Chest pain, rule out acute myocardial infarction Status: Acute (2) COPD (chronic obstructive pulmonary disease) Status: Acute (3) Lung mass Status: Acute (4) History of cerebrovascular accident with residual effects Status: Chronic Brief History of Present Illness: Patient is a 80-year-old female came to the hospital from the [facility] after she was having some chest pressure. Pain was mainly in the sternal region and it did not radiate. Patient is a poor historian and most of the information was obtained from the chart and the nursing facility. Patient also has a history of COPD. Patient's CT scan did not reveal any significant infiltrates. She did have a lung mass that was noted which was felt to be neoplasm. Currently her chest pain is improved. Her troponins were negative and EKG does not have any acute findings. At this time she will be admitted to the hospital for observation to be ruled out for acute coronary syndrome. She does have a lung mass but with her age history of vascular dementia dementia(She has a history of a stroke that left her with left-sided weakness) was I do not think she is a great surgical pt, but we will get pulmonary consult and proceed from there. She will be admitted for observation and anticipate discharge in the morning. Hospital Course: Patient is clinically doing well. Patient has dementia. Patient denies chest pain. At this time patient is stable for discharge with outpatient followup. Patient does have a lung mass and see pulmonary as an outpatient. Her dementia is fairly severe and I do not believe she will benefit from any kind of treatment. Follow up with snf physician as well. Vital Signs/Physical Exam: Temp Pulse Resp BP Pulse Ox 97.2 F 86 18 118/59 L 98 09/27/20 12:13 09/27/20 12:13 09/27/20 12:13 09/27/20 12:13 09/27/20 12:13 General: Alert, In no apparent distress, Demented Laboratory Data at Discharge: WBC 3.3 K/uL (4.3-10.9) L D 09/27/20 06:09 Hgb 12.4 g/dL (12.0-15.0) 09/27/20 06:09 Hct 36.3 % (36.0-45.0) 09/27/20 06:09 Plt Count 176 K/uL (152-406) 09/27/20 06:09 PT 11.2 SECONDS (9.5-12.5) 09/26/20 13:50 INR 0.95 09/26/20 13:50 Sodium 144 mmol/L (136-145) 09/27/20 06:09 Potassium 4.0 mmol/L (3.5-5.1) 09/27/20 06:09 BUN 15 mg/dL (7-18) 09/27/20 06:09 Creatinine 0.69 mg/dL (0.55-1.3) 09/27/20 06:09 Glucose 131 mg/dL (74-106) H 09/27/20 06:09 Phosphorus 2.9 mg/dL (2.5-4.9) 09/27/20 06:09 Magnesium 1.9 mg/dL (1.8-2.4) 09/27/20 06:09 Total Bilirubin 0.4 mg/dL (0.2-1.0) 09/27/20 06:09 AST 16 U/L (15-37) 09/27/20 06:09 ALT 15 U/L (12-78) 09/27/20 06:09 Alkaline Phosphatase 76 U/L (45-117) 09/27/20 06:09 Triglycerides 54 mg/dL (<150) 09/27/20 06:09 Cholesterol 145 mg/dL (<200) 09/27/20 06:09 HDL Cholesterol 47 mg/dL (40-60) 09/27/20 06:09 Cholesterol/HDL Ratio 3.09 09/27/20 06:09 Home Medications: Acetaminophen [Tylenol*] 650 mg PO Q6HP PRN 09/26/20 Aspirin [Aspirin EC 81 MG] 81 mg PO DAILY 09/26/20 Atorvastatin Calcium [Lipitor*] 10 mg PO BEDTIME 09/26/20 Calcium Carbonate [Tums Regular*] 500 mg PO BID 09/26/20 Docusate Sodium 100 mg PO DAILY 09/26/20 Ergocalciferol (Vitamin D2) [Vitamin D2] 50,000 unit PO SEECOM 09/26/20 Lactobacillus Acidophilus [Probiotic Acidophilus] 1.5 mg PO DAILY 09/26/20 Lactulose 10 gm PO DAILY 09/26/20 Levothyroxine [Synthroid*] 125 mcg PO [id number] 09/26/20 Melatonin 5 mg PO BEDTIME 09/26/20 Menthol [Biofreeze] 1 appl TP BID 09/26/20 Omeprazole 20 mg PO DAILY 09/26/20 Tramadol HCl [Ultram] 50 mg PO Q12H 09/26/20 Tramadol HCl [Ultram] 50 mg PO Q6HP PRN 09/26/20 buPROPion HCl [Wellbutrin Sr] 200 mg PO DAILY 09/26/20 Spironolactone [Aldactone*] 25 mg PO DAILY #30 tab 09/27/20 predniSONE [Prednisone*] 20 mg PO DAILY #5 tab 09/27/20 New Medications: Spironolactone [Aldactone*] 25 mg PO DAILY #30 tab predniSONE [Prednisone*] 20 mg PO DAILY #5 tab Patient Discharge Instructions: OK TO DC IV AND DC HOME. FOLLOW-UP WITH PRIMARY CARE PROVIDER IN 1-2 WEEKS. FOLLOW-UP WITH CARDIOLOGY IN 1-2 WEEKS. RETURN TO THE ER IF symptoms worsens. CALL or TEXT DR. GONZALEZ AT [phone] IF ANY QUESTIONS REGARDING HOSPITAL STAY. PLEASE CALL THE FLOOR AT [phone] IF ANY MEDICATION OR NURSING QUESTIONS. Followup: Sea Nunez MD [ACTIVE - CAN ADMIT] - Kris Santoyo MD [ACTIVE - CAN ADMIT] - Annie Romano MD [Primary Care Provider] - Time spent managing pt's care (in minutes): 30
== END 2020-09-27 14:00 ==
LOC: ER 13:19 → ERHOLD 16:33 → 2ND 18:25
PROVIDERS: ADMIT Hospitalist; ATTEND Hospitalist
DX: R07.9 Chest pain, unspecified (principal); J44.9 Chronic obstructive pulmonary disease, unspecified; R91.8 Other nonspecific abnormal finding of lung field; I69.354 Hemiplegia and hemiparesis following cerebral infarction affecting left non-dominant side; Z20.828 Contact with and (suspected) exposure to other viral communicable diseases; R94.31 Abnormal electrocardiogram [ECG] [EKG]; F01.50 Vascular dementia, unspecified severity, without behavioral disturbance, psychotic disturbance, mood disturbance, and anxiety; E03.9 Hypothyroidism, unspecified
CPT/HCPCS: 36415; 51702; 71045; 71275; 80048; 80053; 80061; 80076; 81003; 83605; 83735; 83880; 84100; 84145; 84484; 85025; 85379; 85610; 86140; 87804; 93005; 94760; 96360; 96372; 99285; G0378; J0456; J0696; J1650; J2920; J2930; J7030; J7050; Q9967; U0003